=== PATIENT | male | born 1965 | race Caucasian/White ===

== ENCOUNTER 2019-05-26 12:58 | Outpatient (CLI) | payer MEDICAID, SELFPAY | END 2019-05-26 13:18 | PROVIDERS: PCP Family Medicine; Visit Provider Urology | DX: N20.1 Calculus of ureter (principal); I10 Essential (primary) hypertension; G47.33 Obstructive sleep apnea (adult) (pediatric); Z01.810 Encounter for preprocedural cardiovascular examination; Z01.818 Encounter for other preprocedural examination ==

== ENCOUNTER 2021-07-21 09:18 | Emergency (ER) | payer MEDICAID, SELFPAY ==
[2021-07-21 09:23] VITALS: BP 116/68; PULSE 76; RESP 14; TEMP 36.9; O2SAT 97
--- NOTE | 2021-07-21 09:54 | ED.GENADUL_ITS ---
Discharge Plan Disposition Patient Disposition: HOME Condition: Stable Discharge Details Clinical Impression: Left ankle sprain, Heel spur Primary Care Provider: Yg Miranda ED Provider: Socorro Pace Home Meds and New Rx's Prescriptions: Continued atorvastatin 40 mg tablet 40 mg PO DAILY RF: 0 cyanocobalamin (vitamin B-12) 1,000 mcg/mL solution 100 mcg SC QMONTH RF: 0 escitalopram oxalate 20 mg tablet 20 mg PO DAILY RF: 0 metoprolol succinate 100 mg tablet extended release 24 hr 100 mg PO DAILY RF: 0 nitroglycerin 0.4 mg tablet, sublingual 0.4 mg SL Q5-15M PRNRF: 0 spironolactone 25 mg tablet 25 mg PO DAILY RF: 0 tamsulosin 0.4 mg capsule 0.4 mg PO DAILY RF: 0 cholecalciferol (vitamin D3) 2,000 unit capsule 2,000 unit PO DAILY RF: 0 Xarelto 20 mg tablet 20 mg PO DAILY RF: 0 ibuprofen 800 mg tablet 800 mg PO Q8H PRNRF: 0 lisinopril 40 MG tablet 40 mg PO DAILY RF: 0 CPAP machine 1 applic PO DAILY RF: 0 diltiazem HCl 120 MG capsule,extended release 24hr 120 mg PO DAILY Qty: 30 RF: 0 Discharge Instructions Instructions: Ankle Sprain (ED) Additional Instructions: X-rays show a heel spur possibly injury to the navicular bone. Wear the splint as needed for comfort. Rest ice compression elevation. Please follow-up with orthopedics if continued to have pain. Follow up with primary care provider in 3-5 days. Return to ED sooner if any worsening or concerns. Increase oral fluids. Please take Tylenol or Ibuprofen with food every 4-6 hours as needed for pain and swelling. Referrals: Yg Miranda [Primary Care Provider] - Marvin Espinal MD [ [facility] STAFF PHYSICIAN] - Medical Decision Making 56-year-old male presents to the ER chief complaint of left ankle pain which has been bothering him for approximately a week. He denies any known injury. He reports posterior Achilles tendon area tenderness. No obvious deformity or swelling. Patient does note mild swelling. Distal CMS at baseline. He does have a past medical history of atrial fibrillation, anxiety, depression, peripheral vascular disease, osteoarthritis, obesity and sleep apnea. X-ray left ankle ordered and conservative milligrams Tylenol p.o. FINDINGS: Prominent soft tissue swelling around both sides of the ankle. There are no malleolar fractures nor widening of the mortise and the talar dome appears unremarkable. On the lateral view there is irregularity of the dorsal cortical surface of the navicular bone including what may be a an avulsion fragment. Similar findings are not seen off the dorsal aspect of talus. A 6 millimeter inferior calcaneal spur is noted. IMPRESSION: Abundant soft tissue swelling. No malleolar fractures but there is possible avulsion injury on the dorsal aspect of the navicular. I did discuss x-ray results with patient who verbalized understanding. Patient given a lace up ankle splint instructed on RICE procedures and follow-up care he verbalized understanding. HPI General Mode of arrival: wheelchair . Date/Time Provider Initiated Documentation: 07/21/21 09:45 . Limitations to Documentation: no limitations . Information obtained by: patient, RN notes reviewed and old records reviewed . HPI Narrative: 56-year-old male presents to the ER chief complaint of left ankle pain which has been bothering him for approximately a week. He denies any known injury. He reports posterior Achilles tendon area tenderness. No obvious deformity or swelling. Patient does note mild swelling. Distal CMS at baseline. He does have a past medical history of atrial fibrillation, anxiety, depression, peripheral vascular disease, osteoarthritis, obesity and sleep apnea. Related Data Home Medications Medication Instructions Recorded Confirmed Cpap Machine 1 applic PO DAILY 07/04/14 05/24/19 lisinopril 40 mg PO DAILY tab-cap 07/04/14 05/26/19 diltiazem HCl 120 mg PO DAILY #30 cap.er.24h 08/10/15 05/26/19 atorvastatin 40 mg tablet 40 mg PO DAILY 05/17/19 05/26/19 cholecalciferol (vitamin D3) 50 2,000 unit PO DAILY 05/17/19 05/26/19 mcg (2,000 unit) capsule cyanocobalamin (vitamin B-12) 100 mcg SC QMONTH 05/17/19 05/26/19 1,000 mcg/mL injection solution escitalopram oxalate 20 mg tablet 20 mg PO DAILY 05/17/19 05/26/19 metoprolol succinate 100 mg 100 mg PO DAILY 05/17/19 05/26/19 tablet,extended release 24 hr nitroglycerin 0.4 mg sublingual 0.4 mg SL Q5-15M PRN 05/17/19 05/26/19 tablet rivaroxaban 20 mg tablet 20 mg PO DAILY 05/17/19 05/26/19 spironolactone 25 mg tablet 25 mg PO DAILY 05/17/19 05/26/19 tamsulosin 0.4 mg capsule 0.4 mg PO DAILY 05/17/19 05/17/19 ibuprofen 800 mg tablet 800 mg PO Q8H PRN 05/24/19 05/26/19 Previous Rx's Medication Instructions Recorded diltiazem HCl 120 mg PO DAILY #30 cap.er.24h 08/10/15 Allergies Allergy/AdvReac Type Severity Reaction Status Date / Time hay fever Allergy Mild head Uncoded 07/21/21 09:38 congestion General Stated Complaint: Orthopedic LAQUITA: 4 Review of Systems All systems reviewed & are unremarkable except as noted in HPI and below Musculoskeletal Musculoskeletal: Reports as per HPI, Denies deformity and Reports arthralgias PFSH Medical History Afib Anxiety disorder Arthropathy Borderline diabetes Dental caries Depressive disorder Dyspnea Eddie type 2a hyperlipoproteinemia Hyperlipidemia Hypertensive disorder Localized edema Macrocytosis Mild recurrent major depression Morbid obesity KAREN (obstructive sleep apnea) Osteoarthritis of knee Pain in right wrist Ulcer of lower extremity Vitamin D deficiency Surgical History H/O hernia repair Family History Father Stroke Social History Smoking/Tobacco Use Status: Former Tobacco Use Smoking risk assessment performed?: Yes Alcohol Intake: never Drug use: Never Substance use type: does not use Do you feel safe at home: Yes Do you feel safe in your relationship?: Yes Exam Const General: cooperative, healthy appearing, comfortable and well developed Nutritional Appearance: obese Orientation: alert, awake and oriented x3 Extrem General: capillary refill normal Left lower extremity: ankle Details: tenderness Location: of the achilles tendon and pitting edema; no warmth, no abrasions and no lacerations Course Vital Signs Vital signs: Vital Signs Temperature 36.9 C 07/21/21 09:23 Pulse 76 07/21/21 09:23 Respiratory Rate 14 07/21/21 09:23 Blood Pressure 116/68 07/21/21 09:23 Pulse Oximetry 97 07/21/21 09:23 Temperature 36.9 C 07/21/21 09:23 Temperature Source Core 07/21/21 09:23 Pulse 76 07/21/21 09:23 Respiratory Rate 14 07/21/21 09:23 Respiratory Effort Non-Labored 07/21/21 09:36 Blood Pressure 116/68 07/21/21 09:23 Blood Pressure Position Sitting 07/21/21 09:23 Pulse Oximetry 97 07/21/21 09:23 Oxygen Delivery Method Room Air 07/21/21 09:23 Oxygen Flow Rate 0 07/21/21 09:23 Pain Level 9 07/21/21 09:23
--- NOTE | 2021-07-21 10:09 | DI.RAD_ITS ---
Exam(s) XR ANKLE LT COMPLETE EXAM: XR ANKLE LT COMPLETE CLINICAL HISTORY: R/O Fracture. TECHNIQUE: 2D digital imaging was performed. COMPARISON: CR RIGHT ANKLE COMPLETE from 03/15/2016 FINDINGS: Prominent soft tissue swelling around both sides of the ankle. There are no malleolar fractures nor widening of the mortise and the talar dome appears unremarkable. On the lateral view there is irregularity of the dorsal cortical surface of the navicular bone incl uding what may be a an avulsion fragment. Similar findings are not seen off the dorsal aspect of alma us. A 6 millimeter inferior calcaneal spur is noted. IMPRESSION: Abundant soft tissue swelling. No malleolar fractures but there is possible avulsion injury on the d orsal aspect of the navicular. DATA REPOSITORY: RADIATION DOSE DELIVERED:
[2021-07-21] MEDS: Acetaminophen 325 MG TAB 650 MG PO (10:34)
== END 2021-07-21 10:58 | disposition home or self-care (01) ==
PROVIDERS: Emergency Provider Registered Nurse Emergency; PCP Family Medicine
DX: S93.492A Sprain of other ligament of left ankle, initial encounter (principal); X58.XXXA Exposure to other specified factors, initial encounter; M77.32 Calcaneal spur, left foot; R93.6 Abnormal findings on diagnostic imaging of limbs
CPT/HCPCS: 29515; 99283; 73610

== ENCOUNTER 2021-10-09 12:01 | Emergency (ER) | payer MEDICAID, SELFPAY ==
[2021-10-09 12:06] VITALS: BP 141/101; PULSE 58; RESP 16; TEMP 36.3; O2SAT 99
--- NOTE | 2021-10-09 12:15 | DI.RAD_ITS ---
Exam(s) XR HAND LT COMPLETE XR WRIST LT COMPLETE EXAM: XR HAND LT COMPLETE and XR wrist LT complete CLINICAL HISTORY: pain/swelling. TECHNIQUE: 2D digital imaging was performed of the left hand. Six views were obtained. AP, lateral and oblique views were obtained. COMPARISON: No previous for comparison. FINDINGS: BONES: No acute fracture is present. No bony destructive lesion is seen. JOINTS: No dislocation present. Degenerative changes are seen in the hand. SOFT TISSUE: There is soft tissue swelling of the hand particularly at the MCP level. IMPRESSION: Soft tissue swelling of the hand. No acute fracture or dislocation. DATA REPOSITORY: RADIATION DOSE DELIVERED:
--- NOTE | 2021-10-09 12:34 | ED.GENADUL_ITS ---
Discharge Plan Disposition Patient Disposition: HOME Condition: Stable Discharge Details Clinical Impression: Acute deep vein thrombosis of arm Primary Care Provider: Yg Miranda ED Provider: Trey Beckford Home Meds and New Rx's Prescriptions: New Xarelto 15 mg tablet 15 mg PO BID 21 Days Qty: 42 0RF Rx Instructions: must administer with evening meal Continued atorvastatin 40 mg tablet 40 mg PO DAILY 0RF cyanocobalamin (vitamin B-12) 1,000 mcg/mL solution 100 mcg SC QMONTH 0RF Label Comments: does not take escitalopram oxalate 20 mg tablet 20 mg PO DAILY 0RF Label Comments: does not take metoprolol succinate 100 mg tablet extended release 24 hr 100 mg PO DAILY 0RF nitroglycerin 0.4 mg tablet, sublingual 0.4 mg SL Q5-15M PRN0RF spironolactone 25 mg tablet 25 mg PO DAILY 0RF tamsulosin 0.4 mg capsule 0.4 mg PO DAILY 0RF Label Comments: 05/26 per pt not taking any more. cholecalciferol (vitamin D3) 2,000 unit capsule 2,000 unit PO DAILY 0RF ibuprofen 800 mg tablet 800 mg PO Q8H PRN0RF Label Comments: does not take lisinopril 40 MG tablet 40 mg PO DAILY 0RF CPAP machine 1 applic PO DAILY 0RF diltiazem HCl 120 MG capsule,extended release 24hr 120 mg PO DAILY Qty: 30 0RF furosemide 80 mg tablet 80 mg PO DAILY 0RF Label Comments: TAKE 1 TABLET BY MOUTH EVERY DAY IN THE MORNING Discontinued Xarelto 20 mg tablet 20 mg PO DAILY 0RF Medical Decision Making 56-year-old gentleman, past medical history that includes A. fib, on Xarelto, hypertension, morbid obesity, heart disease, admits that he occasionally forgets to take his Xarelto, presents for left wrist and hand pain. He denies any other symptoms currently. Denies obvious known trauma but reports that when he gets up off the commode he does have to use the left hand to push. He is right-hand dominant. Clinically he has swelling, mild erythema to his left arm but no real ecchymosis. He is afebrile. Patient feels as though this is secondary to getting, no real trauma, but will obtain x-ray of the left hand and wrist. I am concerned potentially for DVT, cellulitis, etc. and plan to obtain ultrasound of his left upper extremity as well as routine laboratory values. Patient is comfortable with this plan. X-ray of hand and wrist reveal soft tissue swelling. No bony abnormality White blood cell count of 12.53, INR 1.4 electrolytes unremarkable, GFR greater than 60. Ultrasound reveals a 4.6 centimeter DVT extending from the axillary vein into one of the brachial veins. Given his noncompliance, I am unsure whether this is truly failed anticoagulation therapy. I placed a call to his PCP, Yg Mejía. He states that he knows the patient well, and compliance can be challenging. He does not feel as though this would be considered failed anticoagulation therapy and is l ikely more secondary to noncompliance. He will be happy to follow the patient in the office and will have his office reach out to him tomorrow. Plan will be to treat for an acute DVT with 15 mg twice daily Xarelto for the next 21 days. I discussed this plan with the patient. He is requesting discharge and would like me to fax his medication to [facility], he needs to leave right now to make the bus. He initially wanted a splint which I placed an order but he will not wait for the splint. Patient understands that he does have a DVT and the importance of prompt outpatient follow-up as well as strict discharge and return precautions were provided. He did not receive his written discharge instructions but was verbally discharged. This documentation was generated using [employer] dictation system, please disregard any oddities of phrase or misspellings. Medical Records Medical records reviewed: Yes I reviewed the patient's medical records. Imaging Data Radiologic Study: Attestation: I personally reviewed and interpreted this imaging study as follows: Imaging: X-Ray Radiologist's impression: Exam(s) XR HAND LT COMPLETE XR WRIST LT COMPLETE EXAM: XR HAND LT COMPLETE and XR wrist LT complete CLINICAL HISTORY: pain/swelling. TECHNIQUE: 2D digital imaging was performed of the left hand. Six views were obtained. AP, lateral and oblique views were obtained. COMPARISON: No previous for comparison. FINDINGS: BONES: No acute fracture is present. No bony destructive lesion is seen. JOINTS: No dislocation present. Degenerative changes are seen in the hand. SOFT TISSUE: There is soft tissue swelling of the hand particularly at the MCP level. IMPRESSION: Soft tissue swelling of the hand. No acute fracture or dislocation. Radiologic Study #2: Attestation: I personally reviewed and interpreted this imaging study as follows: Imaging: X-Ray Radiologist's impression: EXAM: XR HAND LT COMPLETE and XR wrist LT complete CLINICAL HISTORY: pain/swelling. TECHNIQUE: 2D digital imaging was performed of the left hand. Six views were obtained. AP, lateral and oblique views were obtained. COMPARISON: No previous for comparison. FINDINGS: BONES: No acute fracture is present. No bony destructive lesion is seen. JOINTS: No dislocation present. Degenerative changes are seen in the hand. SOFT TISSUE: There is soft tissue swelling of the hand particularly at the MCP l evel. IMPRESSION: Soft tissue swelling of the hand. No acute fracture or dislocation. Radiologic Study #3: Attestation: I personally reviewed and interpreted this imaging study as follows: Imaging: Ultrasound Radiologist's impression: Exam(s) US UPPER EXTREMITY VENOUS LT EXAM: US UPPER EXTREMITY VENOUS LT CLINICAL HISTORY: pain/swelling, no injury. TECHNIQUE: Ultrasound examination of the left upper extremity venous system(s) is performed using grayscale, color-flow, and spectral Doppler analysis. COMPARISON: No exams were available for comparison FINDINGS: The left internal jugular, subclavian, cephalic, basilic, rate, and ulnar veins are patent without evidence of thrombosis. There is hypoechoic thrombus seen extending from the left axillary vein into 1 of the branches of the brachial veins. It measures 4.6 cm in length. IMPRESSION: 1. 4.6 cm DVT extending from the axillary vein into 1 of the brachial veins. 2. Results of this exam have been verbally communicated with provider. Lab Data Lab results reviewed: Yes I reviewed the patient's lab results. Labs: Laboratory Tests Range/Units 10/09/21 10/09/21 10/09/21 14:30 14:30 14:30 WBC (4.4-10.8) 10^3/uL 12.53 H RBC (4.36-5.78) 10^6/uL 4.44 Hgb (13.5-17.5) g/dL 14.1 Hct (40.0-50.0) % 44.4 MCV (80-95) fL 100.0 H MCH (27.0-33.0) pg 31.8 MCHC (32.0-36.0) % 31.8 L RDW (11.8-14.1) % 14.9 H Plt Count (130-400) 10^3/uL 255 MPV (8.0-11.0) fL 9.5 Immature Gran % 0.5 Neutrophils % 76.5 Lymphocytes % 11.3 Monocytes % 9.4 Eosinophils % 1.6 Basophils % 0.7 Nucleated RBC % % 0 Absolute Neutrophils (1.2-6.7) 10^3/uL 9.59 H Absolute Lymphocytes (1.2-3.4) 10^3/uL 1.42 Absolute Monocytes (0.1-0.8) 10^3/uL 1.18 H Absolute Eosinophils (0.0-0.7) 10^3/uL 0.20 Absolute Basophils (0.0-0.2) 10^3/uL 0.09 PT (9.3-11.0) sec 14.0 H INR (0.9-1.1) 1.4 H APTT (21.0-27.5) sec 32.7 H Sodium (136-145) mmol/L 137 Potassium (3.5-5.1) mmol/L 4.7 Chloride (98-107) mmol/L 103 Carbon Dioxide (21.0-32.0) mmol/L 28.6 Anion Gap (3-11) mmol/L 5.4 BUN (7-18) mg/dL 13 Creatinine (0.70-1.30) mg/dL 1.1 Estimated GFR/1.73 m2 (mL/min/1.73m2) >= 60.00 Glucose (74-106) mg/dL 92 Calcium (8.5-10.1) mg/dL 8.9 Total Bilirubin (0.2-1.0) mg/dL 1.4 H AST (15-37) U/L 18 ALT (16-63) U/L 17 Alkaline Phosphatase (46-116) U/L 126 H Total Protein (6.4-8.2) g/dL 7.4 Albumin (3.4-5.0) g/dL 3.2 L HPI General Mode of arrival: ambulatory . Date/Time Provider Initiated Documentation: 10/09/21 12:15 . Limitations to Documentation: no limitations . Information obtained by: patient . History of Present Illness 56 year old M presents to the emergency department with the chief complaint of L hand/wrist pain/swelling, described as moderate, with intensity rated at 4. Quality is described as aching, and is localized to the left and upper extremity. Patient reports no radiation. Patient started experiencing this day(s) (3) and it has been constant. improves with No relieving factors improve symptom(s), Movement worsens symptoms . Patient notes no other symptoms.. Patient did receive the following treatments prior to arrival, none Related Data Home Medications Medication Instructions Recorded Confirmed Cpap Machine 1 applic PO DAILY 07/04/14 10/09/21 lisinopril 40 mg tablet 40 mg PO DAILY tab-cap 07/04/14 10/09/21 diltiazem HCl 120 mg 120 mg PO DAILY #30 cap.er.24h 08/10/15 10/09/21 capsule,extended release 24 hr atorvastatin 40 mg tablet 40 mg PO DAILY 05/17/19 10/09/21 cholecalciferol (vitamin D3) 50 2,000 unit PO DAILY 05/17/19 10/09/21 mcg (2,000 unit) capsule cyanocobalamin (vitamin B-12) 100 mcg SC QMONTH 05/17/19 05/26/19 1,000 mcg/mL injection solution escitalopram oxalate 20 mg tablet 20 mg PO DAILY 05/17/19 05/26/19 metoprolol succinate 100 mg 100 mg PO DAILY 05/17/19 10/09/21 tablet,extended release 24 hr nitroglycerin 0.4 mg sublingual 0.4 mg SL Q5-15M PRN 05/17/19 10/09/21 tablet spironolactone 25 mg tablet 25 mg PO DAILY 05/17/19 10/09/21 tamsulosin 0.4 mg capsule 0.4 mg PO DAILY 05/17/19 10/09/21 ibuprofen 800 mg tablet 800 mg PO Q8H PRN 05/24/19 05/26/19 furosemide 80 mg tablet 80 mg PO DAILY 10/09/21 10/09/21 rivaroxaban 15 mg tablet (Xarelto) 15 mg PO BID 21 Days #42 tab 10/09/21 Previous Rx's Medication Instructions Recorded diltiazem HCl 120 mg 120 mg PO DAILY #30 cap.er.24h 08/10/15 capsule,extended release 24 hr rivaroxaban 15 mg tablet (Xarelto) 15 mg PO BID 21 Days #42 tab 10/09/21 Allergies Allergy/AdvReac Type Severity Reaction Status Date / Time hay fever Allergy Mild head Uncoded 10/09/21 12:13 congestion General Stated Complaint: Orthopedic LAQUITA: 4 Review of Systems Constitutional Constitutional: Denies fever(s) and Denies weakness Cardiovascular Cardiovascular: Denies chest pain and Denies dyspnea Respiratory Respiratory: Denies dyspnea Musculoskeletal Musculoskeletal: Denies deformity, Reports arthralgias, Denies numbness, Reports stiffness and Denies tingling Integumentary/Breasts Skin/Breast: Denies rash Neurologic Neurologic: Denies numbness, Denies tingling and Denies weakness Hematologic/Lymphatic Hematologic/Lymphatic: Reports easy bleeding and Reports easy bruising PFSH All Active Problems Left ankle sprain (Acute) Heel spur (Acute) Acute deep vein thrombosis of arm (Acute) Medical History Afib Anxiety disorder Arthropathy Borderline diabetes Dental caries Depressive disorder Dyspnea Eddie type 2a hyperlipoproteinemia Hyperlipidemia Hypertensive disorder Localized edema Macrocytosis Mild recurrent major depression Morbid obesity KAREN (obstructive sleep apnea) Osteoarthritis of knee Pain in right wrist Ulcer of lower extremity Vitamin D deficiency Surgical History H/O hernia repair Family History Father Stroke Social History Smoking/Tobacco Use Status: Former Tobacco Use Smoking risk assessment performed?: Yes Alcohol Intake: never Drug use: Never Substance use type: does not use Do you feel safe at home: Yes Do you feel safe in your relationship?: Yes Exam Const General: cooperative, comfortable and no acute distress Orientation: alert, awake and oriented x3 HENMT Head: normal to inspection, normocephalic and atraumatic Eyes Conjunctivae: conjunctivae normal Neck Neck: normal visual inspection, trachea midline and supple Resp Effort & Inspection: normal respiratory effort and able to speak in complete sentences Auscultation: clear to auscultation bilaterally Cardio Rate: regular rate Rhythm: abnormal rhythm irregularly irregular GI Inspection: obesity Skin General skin exam: erythema Neuro General: patient alert, patient awake, moves all extremities and no focal motor deficits Cognition: normal cognition Speech: speech normal Gait: gait assisted Method: other (cane) Sensory Exam: no sensory deficits noted Extrem General: full ROM and capillary refill normal Other: Left hand and wrist with diffuse mild erythema, swelling, tenderness to the dorsal aspect, noncircumferential. Normal radial pulse and capillary refill. Skin is intact. There is no lymphangitic streaking. Psych Appearance: grossly normal Mental Status: mental status grossly normal Course Vital Signs Vital signs: Vital Signs Temperature 36.3 C L 10/09/21 12:06 Pulse 58 L 10/09/21 12:06 Respiratory Rate 16 10/09/21 12:06 Blood Pressure 141/101 H 10/09/21 12:06 Pulse Oximetry 99 10/09/21 12:06 Temperature 36.3 C L 10/09/21 12:06 Temperature Source Skin 10/09/21 12:06 Pulse 58 L 10/09/21 12:06 Respiratory Rate 16 10/09/21 12:06 Blood Pressure 141/101 H 10/09/21 12:06 Blood Pressure Position Sitting 10/09/21 12:06 Pulse Oximetry 99 10/09/21 12:06 Oxygen Delivery Method Room Air 10/09/21 12:06 Oxygen Flow Rate 0 10/09/21 12:06 Pain Level 9 10/09/21 12:06
--- NOTE | 2021-10-09 13:30 | DI.US_ITS ---
Exam(s) US UPPER EXTREMITY VENOUS LT EXAM: US UPPER EXTREMITY VENOUS LT CLINICAL HISTORY: pain/swelling, no injury. TECHNIQUE: Ultrasound examination of the left upper extremity venous system(s) is performed using gr ayscale, color-flow, and spectral Doppler analysis. COMPARISON: No exams were available for comparison FINDINGS: The left internal jugular, subclavian, cephalic, basilic, rate, and ulnar veins are patent without ev idence of thrombosis. There is hypoechoic thrombus seen extending from the left axillary vein into 1 of the branches of the brachial veins. It measures 4.6 cm in length. IMPRESSION: 1. 4.6 cm DVT extending from the axillary vein into 1 of the brachial veins. 2. Results of this exam have been verbally communicated with provider. DATA REPOSITORY:
[2021-10-09 14:39] LABS: Abs Immature Grans 0.06 10^3/uL (0.0-0.06); Absolute Basophil Count 0.09 10^3/uL (0.0-0.2); Absolute Monocyte Count 1.18 10^3/uL (0.1-0.8); Absolute Neutrophil Count 9.59 10^3/uL (1.2-6.7); Basophils % 0.7; Eosinophils % 1.6; HCT 44.4 % (40.0-50.0); HGB 14.1 g/dL (13.5-17.5); Immature Grans % 0.5; Lymphocytes % 11.3; MCH 31.8 pg (27.0-33.0); MCHC 31.8 % (32.0-36.0); MPV 9.5 fL (8.0-11.0); Monocytes % 9.4; Neutrophils % 76.5; Nucleated RBC 0 %; Platelet Count 255 10^3/uL (130-400); RBC 4.44 10^6/uL (4.36-5.78); RDW 14.9 % (11.8-14.1); RDW-SD 54.6 fL; WBC 12.53 10^3/uL (4.4-10.8)
[2021-10-09 14:40] LABS: Absolute Lymphocyte Count 1.42 10^3/uL (1.2-3.4)
[2021-10-09 14:52] LABS: ALT 17 U/L (16-63); AST 18 U/L (15-37); Albumin 3.2 g/dL (3.4-5.0); Alkaline Phosphatase 126 U/L (46-116); Anion Gap 5.4 mmol/L (3-11); BUN 13 mg/dL (7-18); Bilirubin, Total 1.4 mg/dL (0.2-1.0); CO2 28.6 mmol/L (21.0-32.0); CREATININE 1.1 mg/dL (0.70-1.30); Calcium 8.9 mg/dL (8.5-10.1); Chloride 103 mmol/L (98-107); Glucose 92 mg/dL (74-106); Potassium 4.7 mmol/L (3.5-5.1); Sodium 137 mmol/L (136-145); Total Protein 7.4 g/dL (6.4-8.2)
[2021-10-09 14:53] LABS: INR 1.4 (0.9-1.1); PTT Activated 32.7 sec (21.0-27.5)
== END 2021-10-09 14:53 | disposition home or self-care (01) ==
PROVIDERS: Emergency Provider Physician Assistant; PCP Family Medicine
DX: I82.622 Acute embolism and thrombosis of deep veins of left upper extremity (principal); I48.91 Unspecified atrial fibrillation; Z79.01 Long term (current) use of anticoagulants; Z91.14 Patient's other noncompliance with medication regimen; M79.642 Pain in left hand
CPT/HCPCS: 36415; 80053; 99284; 73110; 73130; 85025; 85610; 85730; 93971; 99283

== ENCOUNTER 2021-12-03 09:14 | Emergency (ER) | payer MEDICAID, SELFPAY ==
[2021-12-03 09:15] VITALS: BP 143/103; PULSE 60; RESP 16; TEMP 36.2; O2SAT 96
--- NOTE | 2021-12-03 09:43 | W.ED.GENAD ---
Discharge Plan Disposition Patient Disposition: HOME Condition: Stable Discharge Details Clinical Impression: Epicondylitis, lateral, left Primary Care Provider: Yg Murrell ED Provider: Trey Beckford Home Meds and New Rx's Prescriptions: New naproxen [Naprosyn] 500 mg tablet 500 mg PO BID PRNQty: 14 0RF Continued atorvastatin 40 mg tablet 40 mg PO DAILY 0RF cyanocobalamin (vitamin B-12) 1,000 mcg/mL solution 100 mcg SC QMONTH 0RF Label Comments: does not take escitalopram oxalate 20 mg tablet 20 mg PO DAILY 0RF Label Comments: does not take metoprolol succinate 100 mg tablet extended release 24 hr 100 mg PO DAILY 0RF nitroglycerin 0.4 mg tablet, sublingual 0.4 mg SL Q5-15M PRN0RF spironolactone 25 mg tablet 25 mg PO DAILY 0RF tamsulosin 0.4 mg capsule 0.4 mg PO DAILY 0RF Label Comments: 12/01/21 per pt not taking any more. cholecalciferol (vitamin D3) 2,000 unit capsule 2,000 unit PO DAILY 0RF lisinopril 40 MG tablet 40 mg PO DAILY 0RF CPAP machine 1 applic PO DAILY 0RF diltiazem HCl 120 MG capsule,extended release 24hr 120 mg PO DAILY Qty: 30 0RF furosemide 80 mg tablet 80 mg PO DAILY 0RF Label Comments: TAKE 1 TABLET BY MOUTH EVERY DAY IN THE MORNING Discharge Instructions Instructions: Tennis Elbow (ED) Additional Instructions: Naprosyn as directed. Wear sling as needed, advance activity as tolerated. Be sure to move your shoulder passively 4 times a day to avoid a frozen shoulder. Cool and/or warm compresses every 2 hours for 20 minutes. May also try [id number] tennis elbow band or brace for symptomatic control. I will give you the name and number of our local orthopedic team if symptoms not improving with conservative measures in the next 7 days. Please watch for new or worsening symptoms and return to the ER for any concerns Referrals: Marvin Espinal MD [ [facility] STAFF PHYSICIAN] - Medical Decision Making 56-year-old gentleman, [id number], presents complaining of left elbow pain that been going on for at least 4 days. He denies any obvious injury or trauma but does report repetitive motion, using his left arm to push up out of a very low sitting position. Patient states that he has been doing some research online and believes he likely has bursitis but does not have any medications at home. He has not taken any medications for his symptoms. Patient does not believe there is a bony component and declines an x-ray. Examination is most consistent with a lateral epicondylitis. Discussed treatment options, will provide sling, discussed the importance of passive range of motion, anti-inflammatory therapy, [id number] tennis elbow band, and orthopedic referral. Patient comfortable with this plan and has no additional questions or concerns. This documentation was generated using [employer] system, please disregard any oddities of phrase or misspellings. Medical Records Medical records reviewed: Yes I reviewed the patient's medical records. HPI General Mode of arrival: ambulatory. Date/Time Provider Initiated Documentation: 12/03/21 09:27. Limitations to Documentation: no limitations. Information obtained by: patient. History of Present Illness 56 year old M presents to the emergency department with the chief complaint of L elbow pain, described as severe, with intensity rated at 8. Quality is described as aching, and is localized to the left and upper extremity. Patient reports no radiation. Patient started experiencing this day(s) (4) and it has been constant. improves with Immobilization improves symptom(s), Movement worsens symptoms . Patient notes no other symptoms.. Patient did receive the following treatments prior to arrival, none Related Data Home Medications Medication Instructions Recorded Confirmed Cpap Machine 1 applic PO DAILY 07/04/14 12/03/21 lisinopril 40 mg tablet 40 mg PO DAILY tab-cap 07/04/14 12/03/21 diltiazem HCl 120 mg 120 mg PO DAILY #30 cap.er.24h 08/10/15 12/03/21 capsule,extended release 24 hr atorvastatin 40 mg tablet 40 mg PO DAILY 05/17/19 12/03/21 cholecalciferol (vitamin D3) 50 2,000 unit PO DAILY 05/17/19 12/03/21 mcg (2,000 unit) capsule cyanocobalamin (vitamin B-12) 100 mcg SC QMONTH 05/17/19 05/26/19 1,000 mcg/mL injection solution escitalopram oxalate 20 mg tablet 20 mg PO DAILY 05/17/19 12/03/21 metoprolol succinate 100 mg 100 mg PO DAILY 05/17/19 12/03/21 tablet,extended release 24 hr nitroglycerin 0.4 mg sublingual 0.4 mg SL Q5-15M PRN 05/17/19 12/03/21 tablet spironolactone 25 mg tablet 25 mg PO DAILY 05/17/19 12/03/21 tamsulosin 0.4 mg capsule 0.4 mg PO DAILY 05/17/19 10/09/21 furosemide 80 mg tablet 80 mg PO DAILY 10/09/21 12/03/21 naproxen 500 mg tablet (Naprosyn) 500 mg PO BID PRN #14 tab 12/03/21 Previous Rx's Medication Instructions Recorded diltiazem HCl 120 mg 120 mg PO DAILY #30 cap.er.24h 08/10/15 capsule,extended release 24 hr naproxen 500 mg tablet (Naprosyn) 500 mg PO BID PRN #14 tab 12/03/21 Allergies Allergy/AdvReac Type Severity Reaction Status Date / Time hay fever Allergy Mild head Uncoded 12/03/21 09:24 congestion General Stated Complaint: Orthopedic LAQUITA: 4 Review of Systems Constitutional Constitutional: Denies fever(s) and Denies weakness Cardiovascular Cardiovascular: Denies chest pain Musculoskeletal Musculoskeletal: Denies deformity, Reports arthralgias, Denies numbness, Reports stiffness and Denies tingling Integumentary/Breasts Skin/Breast: Denies erythema Neurologic Neurologic: Denies numbness, Denies tingling and Denies weakness PFSH All Active Problems Left ankle sprain (Acute) Heel spur (Acute) Epicondylitis, lateral, left (Acute) Medical History Afib Anxiety disorder Arthropathy Borderline diabetes Dental caries Depressive disorder Dyspnea Eddie type 2a hyperlipoproteinemia Hyperlipidemia Hypertensive disorder Localized edema Macrocytosis Mild recurrent major depression Morbid obesity KAREN (obstructive sleep apnea) Osteoarthritis of knee Pain in right wrist Ulcer of lower extremity Vitamin D deficiency Surgical History H/O hernia repair Family History Father Stroke Social History Smoking/Tobacco Use Status: Former Tobacco Use Smoking risk assessment performed?: Yes Alcohol Intake: current Alcohol Intake frequency: holidays/special occasions only Alcohol type: beer, wine and hard liquor Drug use: Never Substance use type: does not use Do you feel safe at home: Yes Do you feel safe in your relationship?: Yes Exam Const General: cooperative, healthy appearing, comfortable and no acute distress Orientation: alert and awake [facility] Head: normal to inspection, normocephalic and atraumatic Eyes Conjunctivae: conjunctivae normal Neck Neck: normal visual inspection, trachea midline and supple Resp Effort & Inspection: normal respiratory effort and able to speak in complete sentences Cardio Rate: regular rate Rhythm: regular rhythm GI Inspection: obesity Skin General skin exam: no rashes or lesions noted Neuro General: patient alert, patient awake, moves all extremities and no focal motor deficits Cognition: normal cognition Motor: muscle tone normal throughout Sensory Exam: no sensory deficits noted Extrem General: normal to inspection, full ROM and capillary refill normal Elbow/forearm/wrist images: 1. Diffuse soft tissue discomfort. There is no warmth, erythema, bony point tenderness or deformity. 5 out of 5 strength, full range of motion. Neuro, vascular, tendon intact. Normal radial pulse and capillary refill. Psych Appearance: grossly normal Mental Status: mental status grossly normal Course Vital Signs Vital signs: Vital Signs Temperature 36.2 C L 12/03/21 09:15 Pulse 60 12/03/21 09:15 Respiratory Rate 16 12/03/21 09:15 Blood Pressure 143/103 H 12/03/21 09:15 Pulse Oximetry 96 12/03/21 09:15 Temperature 36.2 C L 12/03/21 09:15 Temperature Source Skin 12/03/21 09:15 Pulse 60 12/03/21 09:15 Respiratory Rate 16 12/03/21 09:15 Respiratory Effort Non-Labored 12/03/21 09:37 Blood Pressure 143/103 H 12/03/21 09:15 Blood Pressure Position Sitting 12/03/21 09:15 Pulse Oximetry 96 12/03/21 09:15 Oxygen Delivery Method Room Air 12/03/21 09:15 Oxygen Flow Rate 0 12/03/21 09:15 Pain Level 10 12/03/21 09:38
== END 2021-12-03 09:53 | disposition home or self-care (01) ==
PROVIDERS: Emergency Provider Physician Assistant; PCP Physician Assistant Medical
DX: M77.12 Lateral epicondylitis, left elbow (principal)
CPT/HCPCS: 99283

== ENCOUNTER 2022-06-30 08:03 | Outpatient (CLI) | payer MEDICAID, SELFPAY ==
--- NOTE | 2022-06-30 08:00 | RT.EKG_ITS ---
APPROVED REPORT Exam: Resting ECG Reason for Exam: afib Patient Location: O HR:87 bpm ECG Measurements Heart Rate 87 AXIS [place] [id number] P [id number] QRSd 104 QRS 43 QT 374 T -19 QTc 450 Conclusion Atrial fibrillation...V-rate 60-133, irreg A-activity Left ventricular hypertrophy with repolarization abnormalities IVCD
== END 2022-06-30 08:04 | disposition home or self-care (01) ==
LOC: DI.CARD 08:03
PROVIDERS: PCP Physician Assistant Medical; Visit Provider Internal Medicine Cardiovascular Disease
DX: I48.91 Unspecified atrial fibrillation (principal); R94.31 Abnormal electrocardiogram [ECG] [EKG]
CPT/HCPCS: 93010

== ENCOUNTER 2022-11-16 01:39 | Outpatient (CLI) | payer MEDICAID, SELFPAY ==
--- NOTE | 2022-11-16 08:00 | DI.US_ITS ---
APPROVED REPORT EXAM: Comprehensive 2D, Doppler, and color-flow Echocardiogram Patient Location: Out-Patient Launch Check Out: Mirian Lal RDCS (AE) Indications: A FIB, HTN disorder Other Information Study Quality: Poor. Technically limited study due to body habitus, multiple imaging windows were dwight hnically limited. Conclusion Technically very difficult and suboptimal study Left ventricular chamber size appears grossly normal. Systolic function appears normal, EF 50 to 55% . Segmental wall motion cannot be accurately assessed Right ventricle and right atrium were not well visualized Left atrium is moderately dilated The aortic valve is sclerotic without stenosis or regurgitation Mitral annular calcification. Trace to mild mitral regurgitation Dilated aortic root measuring 3.8 cm Wall motion Left Ventricle Limited parasternal imaging. Left ventricular function visually appears normal Regional wall motion a bnormalities cannot be excluded. Estimated EF 50 to 55% Right Ventricle Right ventricle is not well visualized. Right ventricular systolic function could not be assessed. Atria Left atrium is moderately dilated. Right atrium is not well visualized. Aortic Valve The Aortic valve is sclerotic. There is no aortic valvular stenosis. No aortic regurgitation is pres ent. Mitral Valve Mild mitral annular calcification. No evidence of mitral valve stenosis. Trace to mild mitral regurg itation. Tricuspid Valve The tricuspid valve is normal in structure. There is no tricuspid valve stenosis. Trace tricuspid reg urgitation. Pulmonic Valve Pulmonic valve is not well visualized. There is no pulmonic valvular stenosis. Great Vessels Aortic root is mildly dilated. Ascending aorta is not well visualized. Aortic arch is normal in keith afua. The IVC was not well visualized. Pericardium Technically limited subcostal imaging. 2D Dimensions Ao Root d 3.80 cm M: 3.1 - 3.7 LV Vol A2C d MOD 126.9 mL LVEF (Green's) 43.38 % M: 52 - 72 LV Vol A4C d MOD 125.5 mL LV Volume 86.63 mL M: 62 - 150 LA vol/ BSA A2C s A-L 40.1 mL/m2 LV Volume Index 30.93 mL/m2 M: 34 - 74 LA vol/ BSA A4C s A-L 32.7 mL/m2 LV Vol Biplane MOD 127.7 mL LA Vol/ BSA Biplane s A-L 38.1 mL/m2 LA Area A4C s MOD 28.07 cm2 LA Area A2C s MOD 29.53 cm2 LV EF A4C MOD 43.0 % LV EF A2C MOD 44.7 % LV EF Biplane MOD 43.4 % SV 55.39 mL SV Index 19.76 mL/m2 LV Diastology E/A Ratio 2.0 MV E Vmax 0.78 (0.4-1.3 m/s) MV A Vmax 0.40 (0.4-1.3 m/s) MV E/A Ratio 1.92 Aortic Valve LVOT Area 3.07 cm2 AoV Area Vmax 2.62 cm2 LVOT Vmax 0.83 m/s AoV Area/ BSA (Vmax) 0.93 cm2/m2 LVOT Mean Giovanny. 0.66 m/s ERICA Mean Giovanny. 2.64 cm2 LVOT Peak Grad 2.7 mmHg ERICA Mean Giovanny. Index 0.94 cm2/m2 LVOT Mean Grad 1.8 mmHg LVOT VTI 0.153 m LVOT Diam s 1.95 cm AoV Vmax 0.97 m/s Velocity Ratio 0.86 AoV Mean Giovanny. 0.77 m/s AoV Peak Grad 3.7 mmHg LVOT SV 47.08 mL AoV Mean Grad 2.6 mmHg AoV VTI 0.175 m AoV Area VTI 2.69 cm2 AoV Area/ BSA (VTI) 0.96 cm/m2 Mitral Valve MV DT 248 (160-240 msec) MV PHT 72 msec MV Area PHT 3.06 cm2 MV VTI 0.157 m MV Area VTI 3.01 (4.0-6.0 cm2) Tricuspid Valve TR Peak Grad 19.1 mmHg TR Vmax 2.19 m/s RA Pressure 3.00 mmHg RVSP (TR) 22.1 mmHg
== END 2022-11-16 01:59 ==
PROVIDERS: PCP Physician Assistant Medical; Visit Provider Internal Medicine Cardiovascular Disease
DX: I10 Essential (primary) hypertension (principal); I48.91 Unspecified atrial fibrillation
CPT/HCPCS: 93306